=== PATIENT | male | born 1990 | race Hispanic/Latino ===

== ENCOUNTER 2023-11-09 07:03 | Emergency (ER) | payer OTHER ==
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
--- NOTE | 2023-11-09 08:05 | RAD REPORT ---
EXAM DESCRIPTION: RAD - Shoulder Right 2 View - 11/09/2023 7:39 am CLINICAL HISTORY: Right shoulder pain FINDINGS: No fracture or dislocation is seen.
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
[2023-11-09] MEDS ORDERED: LIDOCAINE 1% MPF 5 ML VIAL ONE (08:56)
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
[2023-11-09 09:50] VITALS: BP 137/81; O2SAT 99
== END 2023-11-09 09:30 | disposition home or self-care (01) ==
LOC: ER 07:03
PROC: 0HQ1XZZ Repair Face Skin, External Approach (ICD-10-PCS; principal; 2023-11-09)
PROC: 0RSWXZZ Reposition Right Finger Phalangeal Joint, External Approach (ICD-10-PCS; 2023-11-09)
DX: S63.124A Dislocation of interphalangeal joint of right thumb, initial encounter (principal); S01.81XA Laceration without foreign body of other part of head, initial encounter
CPT/HCPCS: 70450; 71250; 72125; 70486; 76377; 73130; 73030; 99285; 12002; 26770; J2001